=== PATIENT | female | born 2000 | race Caucasian/White ===

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

== ENCOUNTER 2023-07-24 09:36 | Day surgery (SDC) | payer OTHER ==
[~2023-07-24 09:36] MED LIST: Lactated Ringers 1,000 ML IV SCH
[2023-07-24] MEDS ORDERED: Metoclopramide 10 MG/2 ML SDV ONE (10:01)
[2023-07-24] MEDS ORDERED: propofoL 50 ML ONE (10:01)
[2023-07-24] MEDS ORDERED: Ondansetron 4 MG/2 ML SDV ONE (10:01)
[2023-07-24] MEDS ORDERED: Dexmedetomidine 200 MCG/2 ML SDV ONE (10:02)
[2023-07-24] MEDS ORDERED: ePHEDrine 50 MG/ML SDV ONE (10:46)
== END 2023-07-24 12:10 | disposition home or self-care (01) ==
LOC: MW.SDS 09:36
PROVIDERS: ATTEND Surgery
DX: K59.09 Other constipation (principal); R10.30 Lower abdominal pain, unspecified; K64.8 Other hemorrhoids; K21.9 Gastro-esophageal reflux disease without esophagitis; Z79.899 Other long term (current) drug therapy; Z83.79 Family history of other diseases of the digestive system
CPT/HCPCS: 45380; 81025; J2405; J2704; J2765; J7120; 00811; J3490